=== PATIENT | male | born 1980 | race African-American/Black ===

== ENCOUNTER 2017-06-04 15:40 | Emergency (ER) | payer SELFPAY ==
--- NOTE | 2017-06-04 17:15 | RADIOLOGY REPORT (SQ) ---
EXAM DESCRIPTION: CT CERVICAL SPINE WITHOUT COMPLETED DATE/TIME: 06/04/2017 4:49 pm REASON FOR STUDY: fall pain COMPARISON: 04/20/2014 TECHNIQUE: Axial images acquired through the cervical spine without intravenous contrast. Images re viewed with lung, soft tissue and bone windows. Reconstructed coronal and sagittal MPR images review ed. Images stored on PACS. All CT scanners at this facility use dose modulation, iterative reconstruction, and/or weight based d osing when appropriate to reduce radiation dose to as low as reasonably achievable (ALARA). [facility]: Dose Right [facility]: CareDose [facility]: Dose Right [facility]: Teradose 4D [facility]: Smart [employer] RADIATION DOSE: CT Rad equipment meets quality standard of care and radiation dose reduction techniq ues were employed. CTDIvol: 18.1 mGy. DLP: 438 mGy-cm. mGy. LIMITATIONS: None. FINDINGS: ALIGNMENT: Anatomic. MINERALIZATION: Normal. VERTEBRAL BODIES: No fractures or dislocation. Fusion C6 and C7. FACETS, LATERAL MASSES, POSTERIOR ELEMENTS: No fractures. No dislocation. No acute findings. HARDWARE: Stable hardware C5-C6 C7. VISUALIZED RIBS: No fractures. LUNG APICES AND SOFT TISSUES: No significant or acute findings. OTHER: No other significant finding. IMPRESSION: No acute fractures identified. TECHNICAL DOCUMENTATION: JOB ID: [id number] Quality ID # [id number]: Final reports with documentation of one or more dose reduction techniques (e.g., Au tomated exposure control, adjustment of the mA and/or kV according to patient size, use of iterative reconstruction technique) 2010 [employer]- All Rights Reserved
--- NOTE | 2017-06-04 17:19 | RADIOLOGY REPORT (SQ) ---
EXAM DESCRIPTION: CT LUMBAR SPINE WITHOUT COMPLETED DATE/TIME: 06/04/2017 4:49 pm REASON FOR STUDY: fall pain COMPARISON: MR 2013 TECHNIQUE: Axial images acquired through the lumbar spine without intravenous contrast. Images revi ewed with lung, soft tissue and bone windows. Reconstructed coronal and sagittal MPR images reviewed . All images stored on PACS. All CT scanners at this facility use dose modulation, iterative reconstruction, and/or weight based d osing when appropriate to reduce radiation dose to as low as reasonably achievable (ALARA). [facility]: Dose Right [facility]: CareDose [facility]: Dose Right [facility]: Teradose 4D [facility]: Smart [employer] RADIATION DOSE: mGy. LIMITATIONS: None. FINDINGS: SEGMENTATION: Normal. No transitional anatomy. ALIGNMENT: Normal. VERTEBRAL BODIES: No fractures. No dislocation. No acute findings. DISCS: disc spaces Maintained PEDICLES, TRANSVERSE PROCESSES: Intact FACETS, POSTERIOR ELEMENTS: Intact HARDWARE: None in the spine. VISUALIZED RIBS: No fractures. SOFT TISSUES: No significant or acute finding in adjacent soft tissues. OTHER: No other significant finding. IMPRESSION: No acute fractures identified. TECHNICAL DOCUMENTATION: JOB ID: [id number] Quality ID # [id number]: Final reports with documentation of one or more dose reduction techniques (e.g., Au tomated exposure control, adjustment of the mA and/or kV according to patient size, use of iterative reconstruction technique) 2010 [employer]- All Rights Reserved
[2017-06-04] MEDS ORDERED: HYDROMORPHONE HCL INJ/PF 2 MG/ML AMPULE IM ONE (17:37)
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
--- NOTE | 2017-06-04 17:56 | RADIOLOGY REPORT (SQ) ---
EXAM DESCRIPTION: KNEE RIGHT 4 VIEWS COMPLETED DATE/TIME: 06/04/2017 5:43 pm REASON FOR STUDY: fall COMPARISON: None. NUMBER OF VIEWS: Four views. TECHNIQUE: AP, lateral, and both oblique radiographic images acquired of the right knee. LIMITATIONS: None. FINDINGS: MINERALIZATION: Normal. BONES: No acute fracture or dislocation. No worrisome bone lesions. JOINT: Joint spaces maintained. SOFT TISSUES: No metallic foreign bodies. OTHER: No other significant finding. IMPRESSION: No acute fractures identified. TECHNICAL DOCUMENTATION: JOB ID: [id number] [employer]- All Rights Reserved
--- NOTE | 2017-06-04 17:57 | RADIOLOGY REPORT (SQ) ---
EXAM DESCRIPTION: SHOULDER RIGHT 2 OR MORE VIEWS COMPLETED DATE/TIME: 06/04/2017 5:47 pm REASON FOR STUDY: fall COMPARISON: None. NUMBER OF VIEWS: Three views. TECHNIQUE: Internal rotation, external rotation, and Y view images acquired of the right shoulder. LIMITATIONS: None. FINDINGS: MINERALIZATION: Normal. BONES: No acute fracture or dislocation. No worrisome bone lesions. JOINTS: No dislocation. VISUALIZED LUNGS AND RIBS: No pneumothorax. No rib fracture. SOFT TISSUES: No metallic foreign bodies. OTHER: No other significant finding. IMPRESSION: No acute fracture or dislocation identified. TECHNICAL DOCUMENTATION: JOB ID: [id number] [employer]- All Rights Reserved
[2017-06-04 18:58] VITALS: BP 124/73
== END 2017-06-04 19:00 | disposition home or self-care (01) ==
LOC: ER 15:40
DX: M54.9 Dorsalgia, unspecified (principal); F17.210 Nicotine dependence, cigarettes, uncomplicated; W01.0XXA Fall on same level from slipping, tripping and stumbling without subsequent striking against object, initial encounter; Y92.89 Other specified places as the place of occurrence of the external cause; Z98.1 Arthrodesis status
CPT/HCPCS: 99284; 96372; 73564; 73030; 72125; 72131; J1170

== ENCOUNTER 2018-01-03 17:09 | Emergency (ER) | payer SELFPAY ==
[2018-01-03] MEDS ORDERED: OXYCODONE HCL IR 5 MG TABLET PO ONE (20:06)
[2018-01-03] MEDS ORDERED: LORAZEPAM 1 MG TABLET PO ONE (20:06)
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
[2018-01-03] MEDS ORDERED: DIPH/PERTUSS(ACELL)/TETANUS VAC/PF 0.5 ML SYR (>=10YO) IM ONE (21:30)
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
[2018-01-03] MEDS ORDERED: HYDROCODONE/ACETAMINOPHEN 5-325 MG (6 TAB/ER DISP) PO PRN (22:04)
[2018-01-03 22:08] VITALS: BP 116/93
== END 2018-01-03 22:00 | disposition home or self-care (01) ==
LOC: ER 17:09
DX: S16.1XXA Strain of muscle, fascia and tendon at neck level, initial encounter (principal); S02.2XXA Fracture of nasal bones, initial encounter for closed fracture; S09.90XA Unspecified injury of head, initial encounter; S00.83XA Contusion of other part of head, initial encounter; S01.512A Laceration without foreign body of oral cavity, initial encounter; Y04.2XXA Assault by strike against or bumped into by another person, initial encounter; Y92.009 Unspecified place in unspecified non-institutional (private) residence as the place of occurrence of the external cause; Z98.1 Arthrodesis status; Z23 Encounter for immunization
CPT/HCPCS: 70450; 70486; 72125; 90471; 90715; 99284

== ENCOUNTER 2018-02-06 17:37 | Emergency (ER) | payer SELFPAY ==
[2018-02-06 17:52] VITALS: BP 144/82
[2018-02-06 19:04] LABS: ABSOLUTE BASOPHILS # (AUTO) 0.1 10^3/uL (0.0-0.2); ABSOLUTE EOSINOPHILS # (AUTO) 0.3 10^3/uL (0.0-0.6); ABSOLUTE MONOCYTES (AUTO) 0.8 10^3/uL (0.1-1.4); ABSOLUTE NEUT (AUTO) 6.4 10^3/uL (1.7-8.2); EOSINOPHILS % (AUTO) 3.5 % (0-6); HEMOGLOBIN 14.3 g/dL (13.5-17.0); LYMPHOCYTES % (AUTO) 20.4 % (13-45); MEAN CORPUSCULAR HEMOGLOBIN 31.9 pg (27.0-33.4); MEAN CORPUSCULAR HGB CONC 34.1 g/dL (32.0-36.0); MEAN CORPUSCULAR VOLUME 94 fl (80-97); MONOCYTES % (AUTO) 8.8 % (3-13); PLATELET COUNT 248 10^3/uL (150-450); RED BLOOD COUNT 4.49 10^6/uL (4.35-5.55); RED CELL DISTRIBUTION WIDTH 14.4 % (11.5-14.0); SEGMENTED NEUTROPHILS % (AUTO) 66.3 % (42-78); TOTAL CELLS COUNTED % (AUTO) 100 %; WHITE BLOOD COUNT 9.7 10^3/uL (4.0-10.5)
[2018-02-06 19:19] LABS: ALANINE AMINOTRANSFERASE 24 U/L (21-72); ALBUMIN 4.3 g/dL (3.5-5.0); ALKALINE PHOSPHATASE 71 U/L (38-126); ANION GAP 6 (5-19); ASPARTATE AMINO TRANSFERASE 23 U/L (17-59); BILIRUBIN,DIRECT 0.3 mg/dL (0.0-0.4); BILIRUBIN,TOTAL 0.8 mg/dL (0.2-1.3); BLOOD UREA NITROGEN 21 mg/dL (7-20); CALCIUM 10.3 mg/dL (8.4-10.2); CARBON DIOXIDE 29 mmol/L (22-30); CHLORIDE 106 mmol/L (98-107); GLUCOSE 100 mg/dL (75-110); POTASSIUM 3.9 mmol/L (3.6-5.0); SODIUM 141.3 mmol/L (137-145); TOTAL PROTEIN 7.3 g/dL (6.3-8.2)
[2018-02-06 19:23] LABS: ACETAMINOPHEN < 10 ug/mL (10-30); ALCOHOL < 10 mg/dL (NONE DETECTED); SALICYLATE < 1.0 mg/dL (2.0-20.0)
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
== END 2018-02-06 20:50 | disposition home or self-care (01) ==
LOC: ER 17:37
DX: R46.89 Other symptoms and signs involving appearance and behavior (principal); F17.200 Nicotine dependence, unspecified, uncomplicated
CPT/HCPCS: 36415; 80053; 80307; 85025; 99285

== ENCOUNTER 2018-04-18 06:09 | Emergency (ER) | payer OTHER ==
[2018-04-18 06:18] VITALS: BP 134/85
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
[2018-04-18] MEDS ORDERED: CYCLOBENZAPRINE HCL 10 MG TABLET PO ONE (06:33)
[2018-04-18] MEDS ORDERED: IBUPROFEN 800 MG TABLET PO ONE (06:33)
== END 2018-04-18 07:00 | disposition home or self-care (01) ==
LOC: ER 06:09
DX: S16.1XXA Strain of muscle, fascia and tendon at neck level, initial encounter (principal); X58.XXXA Exposure to other specified factors, initial encounter; R20.0 Anesthesia of skin; R20.2 Paresthesia of skin; M54.2 Cervicalgia; G89.29 Other chronic pain; Z98.1 Arthrodesis status; Z79.891 Long term (current) use of opiate analgesic; F17.200 Nicotine dependence, unspecified, uncomplicated; I10 Essential (primary) hypertension; Z87.81 Personal history of (healed) traumatic fracture
CPT/HCPCS: 99283

== ENCOUNTER 2018-08-07 14:03 | Emergency (ER) | payer OTHER ==
--- NOTE | 2018-08-07 15:18 | ER Document Report ---
HPI - HPI Time Seen by Provider: 08/07/18 15:05 Pain Level: 4 Notes: Patient is a 38-year-old male with no significant past medical history who presents to the emergency department complaining of scalp lesions and some areas on his body that he has noticed developing over the last couple weeks. The areas are primarily pruritic, but states he does notice soreness with the one on his back without any purulent discharge or streaking noted. 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 He denies drug allergies. Patient states that he will have some nausea associated without any vomiting. Patient does admit to smoking but denies any IV drug abuse. He has no concern of STD or STI and is eating and drinking without difficulty. He is urinating normally and having normal bowel movements. Denies any headache, fever, neck pain, URI, sore throat, chest pain, palpitations, syncope, cough, shortness of breath, wheeze, dyspnea, abdominal pain, nausea/vomiting/diarrhea, urinary retention, dysuria, hematuria. - ROS Systems Reviewed and Negative: Yes All other systems reviewed and negative Past Medical History - Social History Smoking Status: Current Some Day Smoker Frequency of alcohol use: Occasional Drug Abuse: None Family History: Reviewed & Not Pertinent Patient has suicidal ideation: No Patient has homicidal ideation: No - Past Medical History Cardiac Medical History: Reports: Hx Hypertension Renal/ Medical History: Denies: Hx Peritoneal Dialysis Musculoskeletal Medical History: Reports Hx Musculoskeletal Deformity, Reports Hx Musculoskeletal Trauma Psychiatric Medical History: Reports: Hx Anxiety - panic attack, Hx Attention Deficit Hyperactivity Disorder, Hx Depression, Hx Post Traumatic Stress Disorder Traumatic Medical History: Reports: Hx Spine Fracture Past Surgical History: Reports: Hx Orthopedic Surgery - c4-c6 fusion, right arm - Immunizations Immunizations up to date: Yes Hx Diphtheria, Pertussis, Tetanus Vaccination: No Vertical Provider Document - CONSTITUTIONAL Agree With Documented VS: Yes Notes: PHYSICAL EXAMINATION: GENERAL: Well-appearing, well-nourished and in no acute distress. HEAD: Atraumatic, normocephalic. EYES: Pupils equal round and reactive to light, extraocular movements intact, sclera anicteric, conjunctiva are normal. ENT: Nares patent and without discharge. oropharynx clear without exudates. No tonsilar hypertrophy or erythema. Moist mucous membranes. NECK: Normal range of motion, supple without lymphadenopathy LUNGS: Breath sounds clear to auscultation bilaterally and equal. No wheezes rales or rhonchi. HEART: Regular rate and rhythm without murmurs, rubs, gallops. ABDOMEN: Soft, nontender, nondistended abdomen. No guarding, no rebound. No masses appreciated. Normal bowel sounds present. No CVA tenderness bilaterally. Musculoskeletal: FROM to passive/active. Strength 5+/5. Extremities: No cyanosis, clubbing, or edema b/l. Peripheral pulses 2+. Capillary refill less than 3 seconds. NEUROLOGICAL: Normal speech, normal gait. PSYCH: Normal mood, normal affect. SKIN: multiple scabbed lesions on the skin (neck, rt shoulder, left shoulder blade). There is mild erythema to the ones on the back without tenderness, fluctuance, or significant induration. no streaks or purulence. No point of maximal tenderness. Mild warmth noted. No blistering, bullae, or vesicles. No necrosis. No lesions to the hands, waist, ankles, palms, or soles. No sloughing of skin. - INFECTION CONTROL TRAVEL OUTSIDE OF THE [place] IN LAST 30 DAYS: No Course - Re-evaluation Re-evalutation: 08/07/18 15:16 Patient is an afebrile, well-hydrated, 38-year-old male who presents emergency department with skin lesions, unspecified etiology, with what appears to be a mild cellulitis to the left scapular area. There is no point of maximal tenderness, fluctuance, induration, or evidence of abscess. No incision and drainage is warranted at this time. Vitals are currently acceptable without significant tachycardia, tachypnea, or hypoxia. PE is otherwise unremarkable. No labs or imaging warranted at this time. Wound instructions reviewed with patient. No suspicion currently for any sepsis, meningitis, SJS, necrotizing fasciitis, or other systemic emergent condition at this time. Patient is aware that condition can change from initial presentation and he needs to monitor sy mptoms closely and seek medical attention with any acute changes. I will send him home with per scription for Keflex and Bactrim. Recheck with your PCM in 2- 3 days. Return to the ED with any other worsening/concerning symptoms as reviewed. Patient is in agreement. Discharge - Discharge Clinical Impression: Cellulitis of skin, Rash and nonspecific skin eruption Condition: Stable Disposition: HOME, SELF-CARE Additional Instructions: Keep the skin clean Wash with soap and water Tylenol/ibuprofen if needed Triple antibiotic ointment daily Take medication as directed Monitor for any worsening symptoms Recheck with your PCM in 2-3 days Return to the ED with any worsening symptoms and/or development of fever, headache, chest pain, palpitations, syncope, shortness of breath, trouble breathing, abdominal pain, n/v/d, abscess, purulent discharge, red streaks, worsening swelling, or other worsening symptoms that are concerning to you. Prescriptions: Cephalexin Monohydrate [Keflex 500 mg Capsule] 500 mg PO TID #30 capsule Ondansetron [Zofran Odt 4 mg Tablet] 1 - 2 tab PO Q4H PRN #15 tab.rapdis PRN Reason: For Nausea/Vomiting Sulfamethoxazole/Trimethoprim [Bactrim Ds Tablet] 1 each PO BID #20 tablet Forms: Elevated Blood Pressure, Smoking Cessation Education, Return to Work Referrals: MADDISON THAPA DO [ACTIVE STAFF] - Follow up as needed SHERRELL JUDD MD [ACTIVE STAFF] - 08/09/18
[2018-08-07] MEDS ORDERED: ONDANSETRON 4 MG TAB.RAPDIS PO ONE (15:22)
[2018-08-07 15:23] VITALS: BP 141/87
== END 2018-08-07 15:46 | disposition home or self-care (01) ==
LOC: ER 14:03
DX: L03.90 Cellulitis, unspecified (principal); R21 Rash and other nonspecific skin eruption; R11.0 Nausea; F17.200 Nicotine dependence, unspecified, uncomplicated; I10 Essential (primary) hypertension
CPT/HCPCS: 99283; S0119

== ENCOUNTER 2018-10-04 18:08 | Inpatient (IN) | payer SELFPAY ==
[~2018-10-04 18:08] MED LIST: ROCURONIUM BROMIDE INJ 50 MG/5 ML VIAL IV ONE; SUCCINYLCHOLINE CHLORIDE INJ 200 MG/10 ML VIAL ONE
[2018-10-04] MEDS ORDERED: ETOMIDATE INJ/PF 20 MG/10 ML SDV IV ONE ×2 (18:14→18:30)
[2018-10-04] MEDS ORDERED: MIDAZOLAM HCL 50 MG/100 ML RTUINJ IV PRN (18:29)
[2018-10-04] MEDS ORDERED: SUCCINYLCHOLINE CHLORIDE INJ 200 MG/10 ML VIAL IV ONE (18:30)
[2018-10-04] MEDS ORDERED: MIDAZOLAM 2 MG/2 ML INJ IV ONE (18:32)
[2018-10-04] MEDS ORDERED: ROCURONIUM BROMIDE INJ 50 MG/5 ML VIAL IV ONE (18:32)
[2018-10-04] MEDS ORDERED: NALOXONE HCL INJ 2 MG/2 ML DISP.SYRIN IV ONE (18:41)
[2018-10-04] MEDS ORDERED: PROPOFOL 1,000 MG/100 ML INFUS..BTL IV ONE (19:05)
[2018-10-04] MEDS ORDERED: PROPOFOL 1,000 MG/100 ML INFUS..BTL IV PRN (19:06)
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
[2018-10-04 19:42] LABS: ABSOLUTE BASOPHILS # (AUTO) 0.1 10^3/uL (0.0-0.2); ABSOLUTE EOSINOPHILS # (AUTO) 0.3 10^3/uL (0.0-0.6); ABSOLUTE LYMPHOCYTES (AUTO) 1.5 10^3/uL (0.5-4.7); ABSOLUTE MONOCYTES (AUTO) 0.9 10^3/uL (0.1-1.4); ABSOLUTE NEUT (AUTO) 5.3 10^3/uL (1.7-8.2); BASOPHILS % (AUTO) 0.7 % (0-2); HEMATOCRIT 42.7 % (37.9-51.0); HEMOGLOBIN 14.5 g/dL (13.5-17.0); LYMPHOCYTES % (AUTO) 18.4 % (13-45); MEAN CORPUSCULAR HEMOGLOBIN 31.6 pg (27.0-33.4); MEAN CORPUSCULAR HGB CONC 33.9 g/dL (32.0-36.0); MEAN CORPUSCULAR VOLUME 93 fl (80-97); MONOCYTES % (AUTO) 11.4 % (3-13); PLATELET COUNT 234 10^3/uL (150-450); RED BLOOD COUNT 4.58 10^6/uL (4.35-5.55); RED CELL DISTRIBUTION WIDTH 13.9 % (11.5-14.0); SEGMENTED NEUTROPHILS % (AUTO) 65.5 % (42-78); TOTAL CELLS COUNTED % (AUTO) 100 %; WHITE BLOOD COUNT 8.1 10^3/uL (4.0-10.5)
[2018-10-04 19:46] LABS: APPEARANCE,URINE CLEAR; BILIRUBIN,URINE NEGATIVE (NEGATIVE); COLOR,URINE YELLOW; GLUCOSE, URINE NEGATIVE (NEGATIVE); KETONES,URINE NEGATIVE (NEGATIVE); LEUKOCYTE ESTERASE,URINE NEGATIVE (NEGATIVE); NITRITE,URINE NEGATIVE (NEGATIVE); PROTEIN,URINE NEGATIVE (NEGATIVE); URINE SPECIFIC GRAVITY 1.032; UROBILINOGEN,URINE NEGATIVE mg/dL (<2.0)
[2018-10-04 20:00] LABS: URINE AMPHETAMINES SCREEN UNCONFIRMED POSITIVE; URINE BARBITURATES SCREEN NEGATIVE; URINE BENZODIAZEPINES SCREEN UNCONFIRMED POSITIVE; URINE COCAINE SCREEN UNCONFIRMED POSITIVE; URINE MARIJUANA (THC) SCREEN UNCONFIRMED POSITIVE; URINE METHADONE SCREEN NEGATIVE; URINE PHENCYCLIDINE SCREEN NEGATIVE
[2018-10-04 20:01] LABS: ALANINE AMINOTRANSFERASE 21 U/L (21-72); ALKALINE PHOSPHATASE 78 U/L (38-126); ANION GAP 14 (5-19); ASPARTATE AMINO TRANSFERASE 25 U/L (17-59); BILIRUBIN,DIRECT 0.3 mg/dL (0.0-0.4); BLOOD UREA NITROGEN 19 mg/dL (7-20); CALCIUM 10.8 mg/dL (8.4-10.2); CARBON DIOXIDE 28 mmol/L (22-30); CHLORIDE 101 mmol/L (98-107); GLUCOSE 84 mg/dL (75-110); POTASSIUM 4.8 mmol/L (3.6-5.0); SODIUM 142.7 mmol/L (137-145); TOTAL PROTEIN 8.2 g/dL (6.3-8.2)
[2018-10-04 20:06] LABS: ACETAMINOPHEN < 10 ug/mL (10-30); ALCOHOL < 10 mg/dL (NONE DETECTED); SALICYLATE < 1.0 mg/dL (2.0-20.0)
--- NOTE | 2018-10-04 20:35 | ER Document Report ---
ED General - General Chief Complaint: Overdose Stated Complaint: POSSIBLE OVERDEOSE Time Seen by Provider: 10/04/18 18:26 TRAVEL OUTSIDE OF THE [place] IN LAST 30 DAYS: No - HPI Notes: Patient is a 38-year-old male brought in for evaluation by EMS. Entire history is obtained from them. In short, this patient had already been released on [facility] for heroin. He was pulled over on a routine traffic stop today. The police went back to their car, found his warrant, and went back to obtain the patient. He evidently had swallowed multiple bags of drugs while in the car. They did begin to process him when he became incoherent and EMS was called. He was given 4 mg of Narcan, but this lasted only a few moments. We do not have any idea exactly how many different drugs, or the quantity of drugs, he ingested while in the car. - Related Data Allergies/Adverse Reactions: No Known Allergies Allergy (Verified 08/07/18 15:03) Past Medical History - General Information source: Emergency Med Personnel - Social History Smoking Status: Unknown if Ever Smoked Drug Abuse: Heroin Family History: Reviewed & Not Pertinent Patient has suicidal ideation: No Patient has homicidal ideation: No - Past Medical History Cardiac Medical History: Reports: Hx Hypertension Renal/ Medical History: Denies: Hx Peritoneal Dialysis Musculoskeletal Medical History: Reports Hx Musculoskeletal Deformity, Reports Hx Musculoskeletal Trauma Psychiatric Medical History: Reports: Hx Anxiety - panic attack, Hx Attention Deficit Hyperactivity Disorder, Hx Depression, Hx Post Traumatic Stress Disorder Traumatic Medical History: Reports: Hx Spine Fracture Past Surgical History: Reports: Hx Orthopedic Surgery - c4-c6 fusion, right arm - Immunizations Immunizations up to date: Yes Hx Diphtheria, Pertussis, Tetanus Vaccination: No Review of Systems - Review of Systems -: Yes ROS unobtainable due to patient's medical condition Physical Exam - Vital signs Vitals: Resp 20 10/04/18 18:15 - Notes Notes: Initial examination reveals a 38-year-old male in a mild amount of distress. Initial GCS of 7. Pupils were 2 mm bilaterally. [place] is moist. Heart is regular rate and rhythm, lungs are clear to oscillation bilaterally. Abdomen is soft, nontender, normoactive bowel sounds. Patient with intermittent fasciculations and myoclonic type jerks noted. Skin diaphoretic. He did intermittently yawn, consistent with Narcan induced withdrawal. Course - Re-evaluation Re-evalutation: 10/04/18 20:34 Patient presented to the emergency department for evaluation. Initial GCS of 7. He received 6 mm of Narcan total and had very little response. The patient was combative when he was coherent in any way. Decision was made to proceed with intubation. RSI performed with etomidate and succinylcholine. Patient was further sedated with Versed. He became hypertensive and more agitated, additional propofol was added. Laboratory investigations ordered as noted. His drug screen was positive for multiple substances. Otherwise imaging and the remainder of lab work was unremarkable. Will speak with hospitalist service for possible admission. 10/04/18 21:35 Notified by nursing that patient's urine output had been decreased since his first urinalysis was sent. He was given a 1 L normal saline bolus, and started on maintenance fluids at 150 an hour. I did review his vital signs. His blood pressure was in the 90s. He is on a sizable dose of propofol as well as Versed for sedation. I did decrease his propofol, will continue to follow urine output. 10/04/18 21:49 Dr. Levin will accept the patient for admission. - Vital Signs Vital signs: Temp Pulse Resp BP Pulse Ox 98.4 F 64 10 L 113/84 100 10/05/18 14:39 10/05/18 14:39 10/05/18 14:39 10/05/18 14:39 10/05/18 14:39 - Laboratory Result Diagrams: 10/05/18 03:31 10/05/18 03:31 Laboratory results interpreted by me: 10/04/18 18:53 Calcium 10.8 H Salicylates < 1.0 L Acetaminophen < 10 L Procedures - Intubation Orotracheal Airway evaluation: Normal anatomy Mallampati Classification: Class 1 Medications: Etomidate, Succinylcholine Intubation method: Orotracheal Blade type: Cinthya Blade size: 3 Equipment used: Glidescope ETT size: 7.5 ETT secured at: Teeth - 22 cm Breath Sounds after Intubation: Equal End tidal CO2 confirmed: Yes Critical Care Note - Critical Care Note Total time excluding time spent on procedures (mins): 40 Discharge - Discharge Clinical Impression: Polysubstance abuse, Accidental heroin overdose, Respiratory failure requiring intubation Condition: Stable Disposition: ADMITTED INPATIENT Admitting Provider: Ollie (Hospitalist) Unit Admitted: ICU
[2018-10-04] MEDS ORDERED: NORMAL SALINE 1000 ML 1,000 ML IV ONE ×2 (21:23)
[2018-10-04] MEDS ORDERED: IPRATROPIUM/ALBUTEROL 0.5-2.5 MG/3 ML AMPUL NEB PRN (21:47)
[2018-10-04] MEDS ORDERED: ACETAMINOPHEN 325 MG TABLET NG PRN (21:47)
[2018-10-04] MEDS ORDERED: NORMAL SALINE 1000 ML 1,000 ML IV SCH (22:00)
[2018-10-04] MEDS: HEPARIN SOD (PORCINE) 5,000 UNIT/ML 1 ML SYRINGE SUBCUT SCH (22:13)
[2018-10-04] MEDS: FAMOTIDINE INJ/PF 20 MG/2 ML SDV IV SCH (22:13)
[2018-10-04] MEDS ORDERED: LORAZEPAM INJ 2 MG/1 ML VIAL ONE (22:29)
--- NOTE | 2018-10-04 22:35 | EKG REPORT ---
SEVERITY:- ABNORMAL ECG - SINUS RHYTHM BORDERLINE RIGHT AXIS DEVIATION CONSIDER LEFT VENTRICULAR HYPERTROPHY ST ELEVATION SUGGESTS PERICARDITIS : Confirmed by: Carlene Rod MD 04-Oct-2018 22:35:00
[2018-10-04] MEDS ORDERED: HALOPERIDOL LACTATE INJ 5 MG/1 ML VIAL ONE (22:38)
[2018-10-04] MEDS ORDERED: FENTANYL CITRATE INJ/PF 100 MCG/2 ML AMPUL IV ONE (23:45)
[2018-10-04] MEDS ORDERED: LORAZEPAM INJ 2 MG/1 ML VIAL IV PRN (23:47)
[2018-10-04] MEDS ORDERED: HALOPERIDOL LACTATE INJ 5 MG/1 ML VIAL IV PRN (23:47)
[2018-10-05] MEDS: IPRATROPIUM/ALBUTEROL 0.5-2.5 MG/3 ML AMPUL NEB SCH ×2 (00:56→08:20)
[2018-10-05 03:49] LABS: ABSOLUTE EOSINOPHILS # (AUTO) 0.4 10^3/uL (0.0-0.6); ABSOLUTE LYMPHOCYTES (AUTO) 1.6 10^3/uL (0.5-4.7); ABSOLUTE MONOCYTES (AUTO) 0.9 10^3/uL (0.1-1.4); ABSOLUTE NEUT (AUTO) 5.2 10^3/uL (1.7-8.2); BASOPHILS % (AUTO) 0.6 % (0-2); EOSINOPHILS % (AUTO) 4.7 % (0-6); HEMATOCRIT 41.1 % (37.9-51.0); HEMOGLOBIN 13.7 g/dL (13.5-17.0); MEAN CORPUSCULAR HEMOGLOBIN 31.2 pg (27.0-33.4); MEAN CORPUSCULAR HGB CONC 33.4 g/dL (32.0-36.0); MEAN CORPUSCULAR VOLUME 93 fl (80-97); MONOCYTES % (AUTO) 10.8 % (3-13); PLATELET COUNT 192 10^3/uL (150-450); RED BLOOD COUNT 4.41 10^6/uL (4.35-5.55); RED CELL DISTRIBUTION WIDTH 13.9 % (11.5-14.0); SEGMENTED NEUTROPHILS % (AUTO) 63.9 % (42-78); TOTAL CELLS COUNTED % (AUTO) 100 %; WHITE BLOOD COUNT 8.2 10^3/uL (4.0-10.5)
[2018-10-05 04:09] LABS: ALANINE AMINOTRANSFERASE 21 U/L (21-72); ALBUMIN 3.7 g/dL (3.5-5.0); ALKALINE PHOSPHATASE 67 U/L (38-126); ANION GAP 9 (5-19); ASPARTATE AMINO TRANSFERASE 22 U/L (17-59); BILIRUBIN,DIRECT 0.2 mg/dL (0.0-0.4); BILIRUBIN,TOTAL 0.9 mg/dL (0.2-1.3); BLOOD UREA NITROGEN 15 mg/dL (7-20); CALCIUM 9.8 mg/dL (8.4-10.2); CARBON DIOXIDE 26 mmol/L (22-30); CHLORIDE 107 mmol/L (98-107); GLUCOSE 85 mg/dL (75-110); POTASSIUM 4.4 mmol/L (3.6-5.0); SODIUM 141.7 mmol/L (137-145); TOTAL PROTEIN 6.4 g/dL (6.3-8.2)
--- NOTE | 2018-10-05 05:57 | PDOC H&P ---
History of Present Illness Admission Date/PCP: 10/04/18 22:04 PACHECO CHACON MD Patient complains of: Altered mental status History of Present Illness: DASHAWN ARNOLD JR is a 38 year old male whose history is obtained by the record as he is intubated and sedated. Patient brought to the emergency room via EMS after being released on [facility] for heroin he was allegedly pulled over for a traffic stop and believed to have swallowed multiple bags of drugs while in the car. Patient became incoherent during arrest and received 4 mg of Narcan without significant improvement he was brought to the emergency room for evaluation. He is found to be intermittently combative and somnolent ultimately requiring intubation for airway protection. He is referred to the hospitalist for admission. Drug screen positive for cocaine, opiates, amphetamines, marijuana patient is found to be fighting the vent intermittently following commands without significant oxygen requirement he is extubated to room air sedated with Haldol, Ativan and transferred to the ICU. Past Medical History Medical History: None - Unobtainable Cardiac Medical History: Reports: Hypertension Psychiatric Medical History: Reports: Attention Deficit Hyperactivity Disorder, Depression, Post Traumatic Stress Disorder Past Surgical History Past Surgical History: Reports: Orthopedic Surgery - c4-c6 fusion, right arm Social History Smoking Status: Unknown if Ever Smoked Hx Recreational Drug Use: Yes Drugs: Cocaine, Marijuana Family History Family History: Reviewed & Not Pertinent Parental Family History Reviewed: No - Unobtainable Children Family History Reviewed: No - Unobtainable Sibling(s) Family History Reviewed.: No - Unobtainable Medication/Allergy Home Medications: Alprazolam [Xanax 0.5 mg Tablet] 1 mg PO Q8HP PRN 10/04/18 Dextroamphetamine/Amphetamine [Dextroamp-Amphetamin 30 mg Tab] 30 mg PO DAILY 10/04/18 Oxycodone HCl/Acetaminophen [Percocet 10-325 Mg Tablet] 1 each PO Q8HP PRN 10/04/18 Allergies/Adverse Reactions: No Known Allergies Allergy (Verified 08/07/18 15:03) Review of Systems ROS unobtainable: Due to endotracheal tube, Due to mental status Physical Exam Vital Signs: Temp Pulse Resp BP Pulse Ox 67 15 112/71 97 10/05/18 00:55 10/05/18 00:36 10/05/18 00:36 10/05/18 00:36 Intake & Output 10/03/18 10/04/18 10/05/18 11:59 11:59 11:59 Intake Total 2115 Output Total 250 Balance 1865 Weight 69.8 kg General appearance: PRESENT: disheveled, severe distress, well-developed, well- nourished Head exam: PRESENT: atraumatic, normocephalic Eye exam: PRESENT: conjunctiva pink, EOMI, PERRLA. ABSENT: scleral icterus Ear exam: PRESENT: normal external ear exam Mouth exam: PRESENT: moist, tongue midline Neck exam: ABSENT: carotid bruit, JVD, lymphadenopathy, thyromegaly Respiratory exam: PRESENT: clear to auscultation cristy, tachypnea. ABSENT: rales, rhonchi, wheezes Cardiovascular exam: PRESENT: tachycardia. ABSENT: diastolic murmur, rubs, systolic murmur Pulses: PRESENT: normal dorsalis pedis pul Vascular exam: PRESENT: normal capillary refill GI/Abdominal exam: PRESENT: normal bowel sounds, soft. ABSENT: distended, guarding, mass, organolmegaly, rebound, tenderness Rectal exam: PRESENT: deferred Extremities exam: PRESENT: full ROM. ABSENT: calf tenderness, clubbing, pedal edema Neurological exam: PRESENT: alert, altered, awake, oriented to person, CN II-XII grossly intact. ABSENT: motor sensory deficit Psychiatric exam: PRESENT: agitated, unusual affect. ABSENT: homicidal ideation, suicidal ideation Skin exam: PRESENT: dry, intact, warm. ABSENT: cyanosis, rash Results Laboratory Results: 10/05/18 03:31 10/05/18 03:31 10/04/18 10/04/18 10/04/18 18:53 18:53 18:53 WBC 8.1 RBC 4.58 Hgb 14.5 Hct 42.7 MCV 93 MCH 31.6 MCHC 33.9 RDW 13.9 Plt Count 234 Seg Neutrophils % 65.5 Lymphocytes % 18.4 Monocytes % 11.4 Eosinophils % 4.0 Basophils % 0.7 Absolute Neutrophils 5.3 Absolute Lymphocytes 1.5 Absolute Monocytes 0.9 Absolute Eosinophils 0.3 Absolute Basophils 0.1 Sodium 142.7 Potassium 4.8 Chloride 101 Carbon Dioxide 28 Anion Gap 14 BUN 19 Creatinine 0.84 Est GFR ( Amer) > 60 Est GFR (Non-Af Amer) > 60 Glucose 84 Calcium 10.8 H Magnesium 2.2 Total Bilirubin 1.0 AST 25 ALT 21 Alkaline Phosphatase 78 Total Protein 8.2 Albumin 5.0 Urine Color Urine Appearance Urine pH Ur Specific Brule Urine Protein Urine Glucose (UA) Urine Ketones Urine Blood Urine Nitrite Ur Leukocyte Esterase Urine WBC (Auto) Urine RBC (Auto) 10/04/18 10/05/18 10/05/18 19:03 03:31 03:31 WBC 8.2 RBC 4.41 Hgb 13.7 Hct 41.1 MCV 93 MCH 31.2 MCHC 33.4 RDW 13.9 Plt Count 192 Seg Neutrophils % 63.9 Lymphocytes % 20.0 Monocytes % 10.8 Eosinophils % 4.7 Basophils % 0.6 Absolute Neutrophils 5.2 Absolute Lymphocytes 1.6 Absolute Monocytes 0.9 Absolute Eosinophils 0.4 Absolute Basophils 0.0 Sodium 141.7 Potassium 4.4 Chloride 107 Carbon Dioxide 26 Anion Gap 9 BUN 15 Creatinine 0.75 Est GFR ( Amer) > 60 Est GFR (Non-Af Amer) > 60 Glucose 85 Calcium 9.8 Magnesium Total Bilirubin 0.9 AST 22 ALT 21 Alkaline Phosphatase 67 Total Protein 6.4 Albumin 3.7 Urine Color YELLOW Urine Appearance CLEAR Urine pH 5.0 Ur Specific Brule 1.032 Urine Protein NEGATIVE Urine Glucose (UA) NEGATIVE Urine Ketones NEGATIVE Urine Blood NEGATIVE Urine Nitrite NEGATIVE Ur Leukocyte Esterase NEGATIVE Urine WBC (Auto) 1 Urine RBC (Auto) 0 Impressions: Chest X-Ray 10/04/18 18:27 IMPRESSION: Endotracheal tube tip overlies the mid trachea approximately 5 cm above the level of the nadine. A nasogastric catheter is present with tip overlying the mid esophagus. KUB X-Ray 10/04/18 18:27 IMPRESSION: Moderate gas distention of the stomach. Assessment and Plan - Diagnosis (1) Acute encephalopathy Is this a current diagnosis for this admission?: Yes Plan: Secondary to polysubstance abuse, following commands, protecting airway without oxygen requirement he is extubated and transferred to the ICU for supportive care. (2) Polysubstance abuse Is this a current diagnosis for this admission?: Yes Plan: Please see #1, follow-up mental health consult - Time Time Spent with patient: 35 or more minutes - Inpatient Certification Medical Necessity: Need Close Monitoring Due to Risk of Patient Decompensation
[2018-10-05] MEDS: HEPARIN SOD (PORCINE) 5,000 UNIT/ML 1 ML SYRINGE SUBCUT SCH ×2 (07:52→13:10)
[2018-10-05] MEDS: FAMOTIDINE INJ/PF 20 MG/2 ML SDV IV SCH (09:09)
[2018-10-05 14:41] VITALS: BP 113/84
--- NOTE | 2018-10-05 15:50 | PSYCHOLOGICAL NOTE ---
Psych Note - Psych Note Date seen by psych provider: 10/05/18 Time seen by psych provider: 07:40 Psych Note: Reason for consult: AMS Consent permissions: Patient refuses Patient presented to [facility] via EMS from [facility]. EMS reported patient was brought to correction for distribution of heroin. Upon arrival to the correction, the patient completed the paperwork at that point JOSE states the patient then ingested unknown amount of unknown substance. Patient reports that he is homeless. When asked for confirmation in regards to living on [address] [facility] (patient's demographics indicate he lives on [address]) he reports that he has not lived there for about 1 year. He states that he stays at different locations; "back and forth." Patient denies having any memory of his location or why he is here. When asked if he remembered yesterday he denies stating he has no memory of anything. Patient is asked what is the last thing he does remember and he again states he remembers nothing. He continues to deny remembering what happened to him at [facility]. When asked what his mental health diagnosis is he states he has bipolar and that "it should be all in the records I cannot remember them all but I know bipolar." He denies having an outpatient mental health provider or ever being inpatient psychiatric treatment. He states that he had attempted suicide 10 years ago but refuses to discuss how or why. He denies being on any medications for his mental health "a long time." He denies any current thoughts of wanting to harm himself. Patient is alert and orientated to person, place, time and circumstance. Patient reports complete memory loss when asked about however is able to articulate that he is homeless for the past year, his mental health diagnosis, and an event 10 years ago where he attempted to harm himself. Patient denies suicidal and homicidal ideation. Delusions are absent behaviors congruent with an intact reality based presentation i.e. organized linear thought process. Eye contact is poor. Conversational speech is quiet at times difficult to hear. Intellectual abilities appear to be within the average range. Attention and concentration are fair. Insight, judgment, impulse control is fair. No medication recommendations at this time Patient\\plan: Patient is cleared from acute psychiatric services. Clinician notes patient had an incomplete IVC petition on chart (do not have all signatures from attending physician). Patient does not meet IVC criteria per [place] GS 122C. Patient has arrest warrants on his chart issued by [facility]. While patient denies any memory, it was reported the patient was arrested for distribution of heroin. During processing into correction, the patient apparently swallowed an unknown substance (probable heroin). Patient is no longer altered mental status and is able to engage in organized and linear conversation with clinician. At this time the patient denies substance abuse or having memory of what brought him to [facility]. If the patient would like resources to rehab, they can be provided prior to discharge. Patient was encouraged to obtain both mental health and substance abuse treatment. Dr. Moncada was consulted to care management of this patient; attending physicians in agreement with recommendations and disposition.
--- NOTE | 2018-10-10 15:16 | PDOC DISCHARGE SUMMARY ---
General - Admit/Disc Date/PCP Admission Date/Primary Care Provider: 10/04/18 22:04 Discharge Date: 10/05/18 - Discharge Diagnosis (1) Acute encephalopathy Is this a current diagnosis for this admission?: Yes (2) Polysubstance abuse Is this a current diagnosis for this admission?: Yes - Additional Information Discharge Diet: Regular Discharge Activity: Activity As Tolerated Home Medications: Alprazolam [Xanax 0.5 mg Tablet] 1 mg PO Q8HP PRN 10/04/18 Dextroamphetamine/Amphetamine [Dextroamp-Amphetamin 30 mg Tab] 30 mg PO DAILY 10/04/18 Oxycodone HCl/Acetaminophen [Percocet 10-325 Mg Tablet] 1 each PO Q8HP PRN 10/04/18 History of Present Illness History of Present Illness: LINDA ARNOLD JR is a 38 year old male whose history is obtained by the record as he is intubated and sedated. Patient brought to the emergency room via EMS after being released on [facility] for heroin he was allegedly pulled over for a traffic stop and believed to have swallowed multiple bags of drugs while in the car. Patient became incoherent during arrest and received 4 mg of Narcan without significant improvement he was brought to the emergency room for evaluation. He is found to be intermittently combative and somnolent ultimately requiring intubation for airway protection. He is referred to the hospitalist for admission. Drug screen positive for cocaine, opiates, amphetamines, marijuana patient is found to be fighting the vent intermittently following commands without significant oxygen requirement he is extubated to room air gage fuentes with Stefanie Parrish and transferred to the ICU. Hospital Course Hospital Course: DASHAWN ARNOLD JR is a 38 year old male whose history is obtained by the record as he is intubated and sedated. Patient brought to the emergency room via EMS after being released on [facility] for heroin he was allegedly pulled over for a traffic stop and believed to have swallowed multiple bags of drugs while in the car. Patient became incoherent during arrest and received 4 mg of Narcan without significant improvement he was brought to the emergency room for evaluation. He is found to be intermittently combative and somnolent ultimately requiring intubation for airway protection. He is referred to the hospitalist for admission. Drug screen positive for cocaine, opiates, amphetamines, marijuana patient is found to be fighting the vent intermittently following com mands without significant oxygen requirement he is extubated to room air sedated with Haldol, Ativan and transferred to the ICU. (1) Acute encephalopathy Secondary to polysubstance abuse, following commands, protecting airway without oxygen requirement he was extubated and transferred to the ICU for supportive care. Following day patient was seen by psych and cleared from acute psychiatric services. Please refer to very detailed psych note. Vitals within normal limits, no sign of withdrawal. Alert oriented x4, CBC,CMP and vitals within normal limits. UDS positive for Opiates, amphetamines, benzos, cocaine, marijuana. Denied any suicidal, homicidal or self-harm ideation. Denied any substance abuse or having any memory of why he was brought to [facility]. Denies memory of ingesting any unknown substance that he was being arrested. Patient initially wanted to call his friend to pick him up but later changed his mind and called his father to pick him up. (2) Polysubstance abuse As per #1. Physical Exam Vital Signs: Temp Pulse Resp BP Pulse Ox 98.4 F 64 10 L 113/84 100 10/05/18 14:39 10/05/18 14:39 10/05/18 14:39 10/05/18 14:39 10/05/18 14:39 General appearance: PRESENT: no acute distress, well-developed, well-nourished Head exam: PRESENT: atraumatic, normocephalic Eye exam: PRESENT: conjunctiva pink, EOMI, PERRLA. ABSENT: scleral icterus Ear exam: PRESENT: normal external ear exam Mouth exam: PRESENT: moist, tongue midline Neck exam: ABSENT: carotid bruit, JVD, lymphadenopathy, thyromegaly Respiratory exam: PRESENT: clear to auscultation cristy. ABSENT: rales, rhonchi, wheezes Cardiovascular exam: PRESENT: RRR. ABSENT: diastolic murmur, rubs, systolic murmur Pulses: PRESENT: normal dorsalis pedis pul Vascular exam: PRESENT: normal capillary refill GI/Abdominal exam: PRESENT: normal bowel sounds, soft. ABSENT: distended, guarding, mass, organolmegaly, rebound, tenderness Rectal exam: PRESENT: deferred Extremities exam: PRESENT: full ROM. ABSENT: calf tenderness, clubbing, pedal edema Neurological exam: PRESENT: alert, awake, oriented to person, oriented to place, oriented to time, oriented to situation, CN II-XII grossly intact. ABSENT: motor sensory deficit Psychiatric exam: PRESENT: appropriate affect, normal mood. ABSENT: homicidal ideation, suicidal ideation Skin exam: PRESENT: dry, intact, warm. ABSENT: cyanosis, rash Results Laboratory Results: 10/05/18 03:31 10/05/18 03:31 Impressions: Chest X-Ray 10/04/18 18:27 IMPRESSION: Endotracheal tube tip overlies the mid trachea approximately 5 cm above the level of the nadine. A nasogastric catheter is present with tip overlying the mid esophagus. KUB X-Ray 10/04/18 18:27 IMPRESSION: Moderate gas distention of the stomach. Qualifiers - * PATIENT BEING DISCHARGED WITH ANY OF THE FOLLOWING DIAGNOSIS: No Acute Heart Failure Is this a Heart Failure Patient?: No
== END 2018-10-05 15:01 | disposition home or self-care (01) | DRG 93 ==
LOC: ER 18:08 → EH 22:04 → ICU 10-05 01:05
PROVIDERS: ADMIT Internal Medicine; ATTEND Internal Medicine
PROC: 0BH17EZ Insertion of Endotracheal Airway into Trachea, Via Natural or Artificial Opening (ICD-10-PCS; principal; 2018-10-04)
PROC: 5A1935Z Respiratory Ventilation, Less than 24 Consecutive Hours (ICD-10-PCS; 2018-10-04)
DX: G92 Toxic encephalopathy (principal); T40.1X1A Poisoning by heroin, accidental (unintentional), initial encounter; T50.905A Adverse effect of unspecified drugs, medicaments and biological substances, initial encounter; F14.10 Cocaine abuse, uncomplicated; F11.10 Opioid abuse, uncomplicated; F15.10 Other stimulant abuse, uncomplicated; F12.10 Cannabis abuse, uncomplicated; I10 Essential (primary) hypertension; F90.9 Attention-deficit hyperactivity disorder, unspecified type; F32.9 Major depressive disorder, single episode, unspecified; F43.10 Post-traumatic stress disorder, unspecified; Z65.3 Problems related to other legal circumstances
CPT/HCPCS: 36415; 71045; 74018; 80053; 80307; 81001; 83735; 85025; 93005; 93010; 94002; 96361; 96374; 99291; J0330; J1630; J1644; J2060; J2250; J2310; J2704; J3010; J3490; J7030; J7620; S0028

== ENCOUNTER 2018-10-23 18:09 | Emergency (ER) | payer SELFPAY ==
[2018-10-23] MEDS ORDERED: ACETAMINOPHEN 325 MG TABLET PO ONE (19:45)
--- NOTE | 2018-10-23 20:33 | RADIOLOGY REPORT (SQ) ---
CT BRAIN, CERVICAL SPINE, AND MAXILLOFACIAL HISTORY: Trauma. COMPARISON: 01/03/2018 TECHNIQUE: CT scan of the brain, cervical spine, and facial bones without IV contrast. This exam was performed according to our departmental dose-optimization program, which includes automated exposure control, adjustment of the mA and/or kV according to patient size and/or use of iterative reconstruction technique. FINDINGS: BRAIN: The ventricles, cisterns, and sulci are age-appropriate. No evidence of acute infarction, intracranial hemorrhage, extra-axial fluid collection, or midline shift. No depressed skull fracture. CERVICAL SPINE: No acute cervical fracture or prevertebral soft tissue swelling is seen. Prior C5-C7 ACDF with hardware intact. There is straightening of the normal cervical lordosis, which may be due to cervical collar, muscle spasm, or patient positioning. The disc spaces and facet joints are intact. No advanced spinal canal stenosis is seen. FACIAL BONES: No acute facial bone fracture is seen. No air-fluid levels are seen in the paranasal sinuses. The mastoid air cells are clear. No retrobulbar mass or hematoma is identified. Right cheek swelling is noted. IMPRESSION: 1. No acute intracranial hemorrhage. 2. No acute cervical fracture or subluxation. 3. No acute maxillofacial fracture.
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
[2018-10-23 21:06] VITALS: BP 138/92
== END 2018-10-23 21:05 | disposition home or self-care (01) ==
LOC: ER 18:09
DX: S09.90XA Unspecified injury of head, initial encounter (principal); R51 Headache; M54.2 Cervicalgia; R07.81 Pleurodynia; R22.0 Localized swelling, mass and lump, head; Y04.2XXA Assault by strike against or bumped into by another person, initial encounter; Y92.59 Other trade areas as the place of occurrence of the external cause; Y99.0 Civilian activity done for income or pay; G89.29 Other chronic pain; Z79.891 Long term (current) use of opiate analgesic; F41.0 Panic disorder [episodic paroxysmal anxiety]; F90.9 Attention-deficit hyperactivity disorder, unspecified type; Z79.899 Other long term (current) drug therapy; F17.200 Nicotine dependence, unspecified, uncomplicated; I10 Essential (primary) hypertension; Z87.81 Personal history of (healed) traumatic fracture; Z98.1 Arthrodesis status
CPT/HCPCS: 99284; 70450; 70486; 72125; L0120

== ENCOUNTER 2018-10-26 12:42 | Emergency (ER) | payer SELFPAY ==
[2018-10-26] MEDS ORDERED: OXYCODONE-ACETAMINOPHEN 5-325 MG TABLET PO ONE (13:21)
[2018-10-26] MEDS ORDERED: ONDANSETRON 4 MG TAB.RAPDIS PO ONE (13:22)
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
--- NOTE | 2018-10-26 14:19 | RADIOLOGY REPORT (SQ) ---
EXAM DESCRIPTION: CHEST 2 VIEWS COMPLETED DATE/TIME: 10/26/2018 1:47 pm REASON FOR STUDY: r rib pain COMPARISON: 2018 TECHNIQUE: Frontal and lateral radiographic views of the chest acquired. NUMBER OF VIEWS: Two view. LIMITATIONS: None. FINDINGS: LUNGS AND PLEURA: No opacities, masses or pneumothorax. No pleural effusion. MEDIASTINUM AND HILAR STRUCTURES: No masses or contour abnormalities. HEART AND VASCULAR STRUCTURES: Heart normal size. No evidence for failure. BONES: Generally intact. Specifically, no displaced rib fractures appreciated. HARDWARE: None in the chest. OTHER: No other significant finding. IMPRESSION: NO SIGNIFICANT RADIOGRAPHIC FINDING IN THE CHEST. TECHNICAL DOCUMENTATION: JOB ID: [id number] [employer]- All Rights Reserved Reading location - IP/workstation name: [email or web address]
[2018-10-26] MEDS ORDERED: ONDANSETRON ODT 4 MG TAB (6 TAB/ER DISP) PO PRN (17:09)
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
[2018-10-26 17:32] LABS: ABSOLUTE LYMPHOCYTES (AUTO) 0.6 10^3/uL (0.5-4.7); ABSOLUTE MONOCYTES (AUTO) 0.9 10^3/uL (0.1-1.4); BASOPHILS % (AUTO) 0.2 % (0-2); EOSINOPHILS % (AUTO) 0.1 % (0-6); HEMATOCRIT 39.7 % (37.9-51.0); HEMOGLOBIN 13.4 g/dL (13.5-17.0); LYMPHOCYTES % (AUTO) 5.5 % (13-45); MEAN CORPUSCULAR HGB CONC 33.7 g/dL (32.0-36.0); MEAN CORPUSCULAR VOLUME 92 fl (80-97); MONOCYTES % (AUTO) 7.5 % (3-13); PLATELET COUNT 279 10^3/uL (150-450); RED CELL DISTRIBUTION WIDTH 13.8 % (11.5-14.0); SEGMENTED NEUTROPHILS % (AUTO) 86.7 % (42-78); TOTAL CELLS COUNTED % (AUTO) 100 %; WHITE BLOOD COUNT 11.6 10^3/uL (4.0-10.5)
[2018-10-26 17:33] VITALS: BP 133/79
[2018-10-26 17:39] LABS: ALANINE AMINOTRANSFERASE 48 U/L (21-72); ALKALINE PHOSPHATASE 79 U/L (38-126); ANION GAP 12 (5-19); ASPARTATE AMINO TRANSFERASE 49 U/L (17-59); BILIRUBIN,DIRECT 0.3 mg/dL (0.0-0.4); BILIRUBIN,TOTAL 0.6 mg/dL (0.2-1.3); BLOOD UREA NITROGEN 24 mg/dL (7-20); CALCIUM 10.7 mg/dL (8.4-10.2); CARBON DIOXIDE 35 mmol/L (22-30); CHLORIDE 92 mmol/L (98-107); GLUCOSE 97 mg/dL (75-110); LIPASE 1625.5 U/L (23-300); POTASSIUM 4.7 mmol/L (3.6-5.0)
== END 2018-10-26 17:32 | disposition home or self-care (01) ==
LOC: ER 12:42
DX: S20.211A Contusion of right front wall of thorax, initial encounter (principal); R22.0 Localized swelling, mass and lump, head; R51 Headache; Y04.2XXA Assault by strike against or bumped into by another person, initial encounter; I10 Essential (primary) hypertension; Z98.1 Arthrodesis status
CPT/HCPCS: 99283; 36415; 83690; 85025; 80053; 71046; S0119